=== PATIENT | male | born 1950 | race Caucasian/White ===

== ENCOUNTER 2016-10-05 05:25 | Inpatient (IN) | payer OTHER ==
[2016-10-05] VITALS (7 sets, daily range): BP systolic 102–159; BP diastolic 52–84
[~2016-10-05] VITALS: Ht 185.4 cm; Wt 154.0 kg
--- NOTE | ~2016-10-05 | HC ---
[facility] [place] [address] CONSULTATION Name: JACINTA GALVAN Naren Room #: 307-P [facility] IN ..#: [id number] Admission: 10/05/16 Attend Phys: Erik Christiansen MD Discharge: Date of : 52 Report #: [id number] THIS REPORT FOR: //name// CC: Erik Tellez DATE OF SERVICE: 10/05/2016 General Surgery Consultation HISTORY OF PRESENT ILLNESS: The patient is a very pleasant 66-year-old gentleman with history of upper abdominal pain over the past 48 hours. This was associated with nausea and vomiting times 1. He has continued to be able to pass flatus and bowel movements. He has been tolerating liquids and has been drinking Gatorade and water, although he did have some emesis at least at one point approximately 24 hours ago. He feels that his abdomen is more distended than his baseline. Denies hematemesis, melena or hematochezia. PAST MEDICAL HISTORY: Positive for grand mal seizures on Dilantin chronically. PAST SURGICAL HISTORY: Previous laminectomy, previous appendectomy. FAMILY HISTORY: Coronary artery disease. SOCIAL HISTORY: The patient is a heavy smoker and smokes 2 packs per day and has for at least 20 years. Negative for drug use, social ETOH only. ALLERGIES: He states no known drug allergies. REVIEW OF SYSTEMS: CONSTITUTIONAL: Negative for fevers, chills or unwanted weight loss. OCULAR: No diplopia or visual change. HEENT: No dysphagia or odynophagia. No voice changes. PULMONARY: No productive cough, no shortness of breath. CARDIOVASCULAR: No chest pain or palpitation. GASTROINTESTINAL: Positive for distention, abdominal pain, nausea and vomiting. GENITOURINARY: Negative for dysuria or hematuria. MUSCULOSKELETAL: No joint swelling, positive for chronic low back pain. CUTANEOUS: Negative for skin lesions or rashes. NEUROLOGIC: No focal weakness or numbness. PHYSICAL EXAMINATION: GENERAL: The patient is awake, alert and oriented. He is afebrile. He is in no acute distress. He is normotensive. Head is atraumatic and normocephalic. Cranial nerves are intact and symmetric. No icterus is appreciated. [address] [address] CONSULTATION Name: JACINTA GALVAN Room #: 307-P [facility] IN .R.#: [id number] Admission: 10/05/16 Attend Phys: Erik Christiansen MD Discharge: Date of : 51 Report #: [id number] cavity is clear, pink, moist mucosa noted. NECK: Supple, without jugular venous distention. LUNGS: Clear to auscultation. No respiratory distress. HEART: Regular, without murmur. ABDOMEN: Distended. He is tender to palpation in the epigastrium and right upper quadrant. No rebound or guarding. There is a well-healed appendectomy incision in the right lower quadrant. EXTREMITIES: Without clubbing, cyanosis or edema. SKIN: Shows changes consistent with heavy chronic smoking, no focal lesions, rashes are noted. LABORATORY DATA: Reviewed. The patient has a hemoglobin of 13.5, platelets of 262, white count of 22, lipase of 48. Total bilirubin of 0.7, AST of 16, ALT of 23. Basic metabolic profile essentially unremarkable. Creatinine 1.1. Ultrasound of the abdomen is reviewed and this shows mild sludge, no obvious stones, no obvious common bile duct obstruction, diffuse hepatic steatosis is noted. Gallbladder is distended with diffuse thickening of the baker. There is a small amount of pericholecystic fluid. CT scan of abdomen and pelvis was obtained by the emergency department. This was reviewed and shows gallbladder wall thickening with distention and pericholecystic fluid as well. No obvious biliary ductal obstruction, extensive diverticulosis without any obvious diverticulitis. IMPRESSION: A 66-year-old male patient with a 2-day history of acute cholecystitis. PLAN: The patient is admitted and has been started on IV Zosyn. We will plan for laparoscopic cholecystectomy with intraoperative cholangiogram at the next available opportunity. Consultation very much appreciated. <ELECTRONICALLY SIGNED> By: Yosi Lancaster MD 10/06/16 1832 1207 1423 Yosi Lancaster MD /nt
--- NOTE | ~2016-10-05 | S ---
[facility] [place] [address] SURGICAL PATH RPT PROCEDURE Name: JIM GALVAN Room #: 307-P ADM IN M.R.#: [id number] Admission: 10/05/16 Date of : 52 Discharge: Report #: [id number] Path Case #: [id number] PATHOLOGY REPORT COLLECTION DATE: 10/05/2016 RECEIVED DATE: 10/05/2016 SUBMITTING PHYS: Dr. Yosi Lancaster OTHER PHYS: MD Dr. David Lucas SPECIMEN(S) RECEIVED: A.Gallbladder * * * * * * * * * * * * FINAL DIAGNOSIS: "Gallbladder", cholecystectomy: - Acute necrotizing cholecystitis. - Cholelithiasis. (CLW:kayla; 10/07/2016) COMMENT: Background chronic cholecystitis is also noted. Clinical correlation is recommended. (CLW:kayla; 10/07/2016) PATHOLOGIST: Lois Kang M.D. REPORT ELECTRONICALLY SIGNED BY: Lois Kang M.D. DATE/TIME: 10/07/2016 14:30 * * * * * * * * * * * * GROSS PATHOLOGY: Received in formalin labeled "NareshJim, gallbladder," is a 13.2 x 6.2 x 2.4 cm, previously opened gallbladder with a moderate to large amount of attached adipose tissue and pinktan to red-brown wrinkled serosal surfaces. Opening the gallbladder reveals a red-brown to green thick mucus-like material and green to brown slightly velvety to rough patchy mucosa and an average wall thickness of 0.2 cm. Calculi are present, yellow, bumpy, friable and range in size from 0.2 to 0.8 cm in maximum dimensions. No masses are noted grossly. Butter Grader sections from the body and fundus are submitted along with the proximal margin in cassette A1. (DAWIT; 10/06/2016) CLINICAL HISTORY: Cholecystitis, cholelithiasis [address] [address] SURGICAL PATH RPT PROCEDURE Name: JIM GALVAN Naren Room #: 307-P [facility] IN ..#: [id number] Admission: 10/05/16 Date of : 52 Discharge: Report #: [id number] Path Case #: [id number] INITIAL CPT CODE(S): A; 42181 Professional services performed by [facility] at [address], [place] [address] Technical services performed by [facility] at [address] [place] [address], [facility] [address], [place] [address]. [facility] [address] [place] [address] PHONE: [phone] DIRECTOR: Anoop Esquivel M.D. * * * END OF REPORT * * *
--- NOTE | ~2016-10-05 | O ---
[facility] [place] [address] OPERATIVE REPORT Name: JACINTA GALVAN Room #: 307-P ADM IN M.R.#: [id number] Admission: 10/05/16 Attend Phys: Erik Christiansen MD Discharge: Date of : 51 Report #: [id number] THIS REPORT FOR: //name// CC: Erik Christiansen [facility] [place] DATE OF SERVICE: 10/05/2016 PREOPERATIVE DIAGNOSIS: Cholecystitis. POSTOPERATIVE DIAGNOSIS: Gangrenous cholecystitis, cholelithiasis. SURGEON: Yosi Lancaster MD MANAGER TRUST: Jeremy Iyer MD PROCEDURE: Laparoscopic cholecystectomy. ANESTHESIA: General endotracheal anesthesia and local anesthetic. ESTIMATED BLOOD LOSS: 100 mL. SPECIMENS TO PATHOLOGY: Gallbladder and contents. COMPLICATIONS: None. FINDINGS: Severe acute cholecystitis with gangrenous changes to the gallbladder, 130 mL of purulent bile aspirated from the gallbladder and passed off for culture and sensitivity. The patient noted to have a BMI of 45, which added to the difficulty level of the case. He also had significant hepatic steatosis, which added to oozing of the liver bed significantly and gave some difficulty maintaining hemostasis. INDICATION FOR PROCEDURE: The patient is a 66-year-old male patient with approximately 2-day history of upper abdominal pain that had worsened to a degree that he sought evaluation in the Emergency Department. He has extensive tobacco abuse history, having smoked approximately 2 packs per day for many years. He had developed nausea and vomiting with distended abdomen. In the Emergency Department, he underwent radiographic evaluation with CT scan and ultrasound that showed a distended, diffusely thickened gallbladder with small amount of pericholecystic fluid. Ultrasound showed similar findings with gallbladder sludge also noted. General Surgery was consulted after the patient was admitted and started on IV antibiotic therapy. Detailed discussion of the risks and benefits of surgical intervention was held with the patient. Risks including bleeding, pain, infection, abscess formation, damage to surrounding structures such as liver, common bile duct, small bowel, stomach, colon and other potentially unforeseen complications were all discussed. All questions [address] [address] OPERATIVE REPORT Name: JACINTA GALVAN Room #: 307-P [facility] IN .R.#: [id number] Admission: 10/05/16 Attend Phys: Erik Christiansen MD Discharge: Date of : 51 Report #: [id number] were answered to the patient's satisfaction. Written informed consent was obtained. DESCRIPTION OF PROCEDURE: The patient was brought to the operating room and placed in a supine position. Timeout was taken to verify the patient's identity and to plan the procedure. SCDs were in place on the lower extremities bilaterally. Preoperative antibiotics were administered. Anesthesia was induced. The patient was intubated. The abdomen was sterilely prepped and draped in standard fashion. Supraumbilical incision was made with a 10 blade after local anesthetic had been infiltrated. Dissection was carried down to the level of fascia, which was grasped and retracted anterior. Incision was then made in the fascia and digital palpation was utilized to enter the peritoneal cavity. A 12 mm port was then placed and balloon inflated. Pneumoperitoneum was then created and inspection of the viscera with a laparoscope demonstrated that no injury had occurred upon entry. A 5 mm subxiphoid port was placed under direct vision as well as a midclavicular right subcostal and a right lateral subcostal 5 mm port placed under direct vision after local anesthetic had been infiltrated. The patient was placed in steep reverse Trendelenburg position with the right side up to improve visualization. Initially, the omentum was scarred up around the gallbladder as well as was the duodenum. These were taken down with blunt dissection and Sonicision energy device with extreme caution. The gallbladder was ultimately able to be visualized and this was so distended and thickened that it was unable to be grasped initially. Therefore, a Toeple needle and syringe apparatus were utilized to aspirate 130 mL of purulent bile from the gallbladder. This was noted to be malodorous and with the appearance of acute infection, this was passed off for specimen analysis. The gallbladder was then able to be grasped and retracted anterolaterally. The infundibulum of the gallbladder was then carefully dissected out and the cystic duct was noted to be quite short right up against the common bile duct. Therefore, cholangiogram was not performed. The cystic artery was also isolated and critical view of safety was obtained. Cystic artery was taken down with 2 clips and transected between the clips. Cystic duct was clipped 1 time near the gallbladder and 3 times on the downside or proximal side. This was then transected using Sonicision energy device. The gallbladder was then extracted from the gallbladder fossa using electrocautery and Sonicision energy device. This was somewhat difficult as the liver bed was steatotic and tender to ooze significantly. The plane between the gallbladder and the liver was also not well defined, possibly associated with the significant inflammation. The gallbladder itself was noted to be necrotic with gangrenous changes turning villafuerte and black in various locations consistent with a severe acute infection. Once the gallbladder had been successfully excised from the fossa, this was passed into an EndoCatch bag and removed from the umbilical port site. This was difficult as the gallbladder did not easily fit through the small incision and the incision had to be enlarged slightly. Gallbladder was examined on the back table and was noted to have necrotic changes with cholelithiasis. Reinspection of the [facility] [address] [place] [address] OPERATIVE REPORT Name: JACINTA GALVAN Room #: 307-P ADM IN ..#: [id number] Admission: 10/05/16 Attend Phys: Erik Christiansen MD Discharge: Date of : 51 Report #: [id number] infrahepatic space was performed. There were several areas of oozing which were controlled with electrocautery on high setting. Copious warm sterile saline was washed into the infrahepatic space and suctioned clear. Hemostasis was carefully verified. Surgicel was placed into the liver bed as well as FloSeal to aid with hemostasis. The 12 mm port was removed and the fascia was closed at that level using #1 [id number] PDS suture. Reinspection of the infrahepatic space showed that hemostasis had been maintained. A 19-British Cristhian drain was brought into the field and lying in place underneath the liver bed to collect any further abscess that might form versus hematoma. The drain was brought out through the right lateral port site and secured in place using interrupted 2-0 nylon sutures at the level of the skin. Reinspection of the gallbladder fossa showed that hemostasis was still maintained and at this point the case was ended. Pneumoperitoneum was relieved. A 5 mm ports were discontinued. Further local anesthetic was infiltrated in each of the port sites. The skin was closed externally using skin yareli. Sterile dressings were applied superficially. The Cristhian drain was placed to bulb suction and was noted to hold suction well. At this point, the case was ended, all instrumentation had been extracted and accounted for. All counts were correct per nurse report. The patient was extubated and taken to the postoperative care unit in stable condition. <ELECTRONICALLY SIGNED> By: Yosi Lancaster MD 10/14/16 1624 1349 1442 Yosi Lancaster MD /nt
--- NOTE | ~2016-10-05 | EKG ---
[address] [address] ELECTROCARDIOGRAM REPORT Name: JACINTA GALVAN Room #: 307-P ADM IN M.R.#: [id number] Admission: 10/05/16 Attend Phys: Erik Christiansen MD Discharge: Date of : 51 Report #: [id number] THIS REPORT FOR: //name// [facility] ED Test Date: 2016-10-05 Test Time: 06:17:56 Pat Name: JACINTA GALVAN Department: Room: [facility] Gender: M Front Attendant: SANDRA : 1950 Requested By: Yaa Kang Order Number: [id number] MD: Luis Manuel Tarango Measurements Intervals [place] Rate: 91 P: 49 CT: 167 QRS: 13 QRSD: 94 T: 27 QT: 329 QTc: 405 Interpretive Statements Sinus rhythm Baseline wander in lead(s) V2,V4 Compared to ECG 01/22/2000 07:45:38 No significant changes Electronically Signed On 10-05-2016 16:45:57 CDT by Luis Manuel Tarango [email or web address] <ELECTRONICALLY SIGNED> By: Luis Manuel Tarango MD 10/05/16 1645 6 6 Luis Manuel Tarango MD /ANA
--- NOTE | ~2016-10-05 | HC ---
[facility] [place] [address] CONSULTATION Name: JACINTA GALVAN Room #: 307-P [facility] IN .R.#: [id number] Admission: 10/05/16 Attend Phys: Erik Christiansen MD Discharge: Date of : 51 Report #: [id number] THIS REPORT FOR: //name// CC: Erik Barreratabitha DATE OF SERVICE: 10/06/2016 REASON FOR CONSULTATION: Acute kidney injury. HISTORY OF PRESENT ILLNESS: A 66-year-old gentleman with hypertension and seizure disorder presents with severe abdominal pain, found to have gangrenous gallbladder, had surgery yesterday, had purulent biliary fluid as well and has become rather overnight with hypotension, decreased urine output, elevated creatinine in LFTs. PAST MEDICAL HISTORY: Longstanding hypertension in reasonable control, he is almost on hydrochlorothiazide; longstanding seizure disorder, controlled with Keppra; history of hyperlipidemia. He has also had previous laminectomy and appendectomy. SOCIAL HISTORY: He is a very heavy longstanding smoker. He is an RN, recently retired. FAMILY HISTORY: Father with coronary artery disease with no renal disease in the family. ALLERGIES: No known drug allergies. HOME MEDICATIONS: Include Dilantin 300 mg a.m. and 200 mg p.m., losartan 100/12.5, Lipitor 40 mg daily, aspirin and finasteride. REVIEW OF SYSTEMS: GENERAL: He is not feeling well postoperatively. EYES: His vision is okay. ENT: Hearing okay, swallows okay. Denies mouth ulcers. ENDOCRINE: No diabetes or thyroid disease. RESPIRATORY: Denies shortness of breath, pleuritic pain, no cough, no hemoptysis. CARDIAC: Denies chest pain, palpitations, shortness of breath. GASTROINTESTINAL: Severe abdominal pain along with this episode. GENITOURINARY: Has had reasonably good urinary stream. No hematuria or stone disease, no history of dysuria, UTIs. NEUROLOGIC: Denies seizure, syncope, stroke or neuropathy symptoms. PSYCHIATRIC: Denies depression or anxiety. [facility] [address] [place] [address] CONSULTATION Name: JACINTA GALVAN Naren Room #: 307-P [facility] IN ..#: [id number] Admission: 10/05/16 Attend Phys: Erik Christiansen MD Discharge: Date of : 51 Report #: [id number] PHYSICAL EXAMINATION: VITAL SIGNS: This is an overweight gentleman looking his stated age. SKIN: Unremarkable. SKELETAL: Well developed, well nourished. HEENT: Extraocular movements are full. No scleral icterus. Hearing and vision intact. Mucous membranes dry. NECK: Veins are flat. CHEST: Clear to auscultation. HEART: Regular. ABDOMEN: Distended, slightly tender, but bowel sounds are present. EXTREMITIES: Show no peripheral edema. Pulses intact. NEUROLOGIC: Grossly intact. LABORATORY DATA: Urinalysis was dilute preoperatively. Hemoglobin 12, white count of 19.8, only 1 band. Sodium 138, potassium 4.6, chloride 100, bicarbonate 29, BUN 25, creatinine 2.8. AST 721. Phosphorus 5.8, ALT 644. ASSESSMENT AND PLAN: 1. Elevated creatinine. He appears to have acute injury. Hopefully, this is simply prerenal. Blood pressure is lower than I would expect. I will give him a liter of fluid, check urinary electrolytes. We will get a Jeffries put in, be aggressive with fluid management, increase his saline. Hopefully we can get him reperfused, get his blood pressure up. Part of the problem is he has chronic hypertension, he has been on losartan. He is obviously having trouble with autoregulation in getting these kidneys perfused adequately. He certainly is at risk for acute tubular necrosis and we will strongly watch closely for that as well. We will monitor closely. He may actually need to be transferred to a more intensive setting. 2. Hypertension. 3. Seizure disorder. 4. Status post cholecystectomy with gangrenous gallbladder, purulent biliary drainage. <ELECTRONICALLY SIGNED> By: Sky Esposito MD 10/14/16 1121 1130 1430 Sky Esposito MD /nt
--- NOTE | ~2016-10-05 | H ---
[facility] [place] [address] HISTORY AND PHYSICAL Name: JACINTA GALVAN Naren Room #: 307-P ADM IN M.R.#: [id number] Admission: 10/05/16 Attend Phys: Erik Christiansen MD Discharge: Date of : 52 Report #: [id number] THIS REPORT FOR: //name// CC: Erik Hernandez [facility] DATE OF SERVICE: 10/05/2016 REASON FOR ADMISSION: Abdominal pain with acute cholecystitis. HISTORY OF PRESENT ILLNESS: The patient is a pleasant 66-year-old gentleman. He has been having significant abdominal discomfort primarily in his right upper quadrant, but also radiating to the rest of his abdomen starting approximately 2 days prior. This has been accompanied by significant nausea with him unable to keep any significant amount of food down. He has also overall felt substantially ill and febrile. He has noted abdominal bloating and hence presented with all these symptoms to the Emergency Room. Here, he is felt to have an acute abdomen and CT in the Emergency Room was concerning for acute cholecystitis. The surgical team has already been informed about this patient and he is planned for definite operative repair later this morning. When seen by me today, he continues to have abdominal pain and nausea, but has no other significant complaints. He is coherent and able to appropriately answer my questions. He denies headaches, skin rashes, shortness of breath, chest pain or other new complaints at this time. PAST MEDICAL HISTORY: Includes: 1. Epilepsy. 2. Hypertension. 3. Hyperlipidemia. PAST SURGICAL HISTORY: Includes: 1. Appendectomy. 2. Laminectomy in the 1990s. SOCIAL HISTORY: Active smoker, 2 packs a day for 40 years. No alcohol use reported. 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 FAMILY HISTORY: Father had coronary artery disease. ALLERGIES: No known drug allergies. HOME MEDICATIONS: Include, 1. Dilantin 300 in the morning, 200 at night. 2. Losartan 100/12.5. 3. Lipitor. [address] [address] HISTORY AND PHYSICAL Name: MANDYJACINTA Room #: 307-P [facility] IN ..#: [id number] Admission: 10/05/16 Attend Phys: Erik Christiansen MD Discharge: Date of : 52 Report #: [id number] 4. Aspirin. 5. Finasteride. REVIEW OF SYSTEMS: Twelve-point review of systems performed, negative except as mentioned in the history of present illness. PHYSICAL EXAMINATION: VITAL SIGNS: The patient is afebrile, pulse of 92, respiratory rate of 20, O2 sat 97 on room air, blood pressure is 159/84. GENERAL: Awake, alert, somewhat uncomfortable. HEENT: Unremarkable. NECK: No JVD or thyromegaly. CARDIOVASCULAR: S1 and S2 present, regular. RESPIRATORY: Air entry present bilaterally. ABDOMEN: Bloated, somewhat tense, tender to palpation all over with guarding. EXTREMITIES: Without edema. NEUROLOGIC: Awake, alert. No obvious focal findings. SKIN: Unremarkable. No rash or lesions. LABS AND INVESTIGATIONS: Reviewed, notable for leukocytosis of 22,000. Hemoglobin within normal range. Platelets within normal range. Chemistry with normal renal function. No other obvious severe concerning abnormalities. LFTs within normal range. Imaging with abdominal and pelvis CT and abdominal ultrasound demonstrates distended gallbladder with wall thickening and moderate pericholecystic fluid consistent with cholecystitis. Ultrasound also showing acute cholecystitis. ASSESSMENT AND PLAN: This is a 66-year-old gentleman presenting with acute cholecystitis. 1. Acute cholecystitis. The patient is planned for definitive surgical intervention later this morning. In the meantime, we will temporize him with Zosyn and start pain and nausea control medications. 2. Epilepsy. Home meds to be continued postop. 3. Hypertension. Home meds to be continued postop. 4. Hyperlipidemia. Home meds to be continued postop. 5. Deep vein thrombosis prophylaxis, mechanical alone at the present with plans for surgery this morning. <ELECTRONICALLY SIGNED> By: Erik Christiansen MD 10/05/16 1517 1021 1104 Erik Christiansen MD /nt
[2016-10-05] MEDS ORDERED: ADULT LOW DOSE81 MG PO (05:42)
[2016-10-05] MEDS ORDERED: DILANTIN100 MG PO ×2 (05:43)
[2016-10-05] MEDS ORDERED: COZAAR 50 MG TA50 M2 PO (05:51)
[2016-10-05] MEDS ORDERED: HYDROCHLOROTH12.5 M1 PO (05:51)
[2016-10-05] MEDS ORDERED: PROSCAR 5MG TABL5 MG PO (05:52)
[2016-10-05] MEDS ORDERED: ADULTS 50 PLUS1 EACH PO (05:53)
[2016-10-05] MEDS ORDERED: FLONASE 0.05%50 MCG NASAL (05:54)
[2016-10-05 06:20] LABS: HEMATOCRIT 40.1 % (42.0-52.0); HEMOGLOBIN 13.5 gm/dL (14.0-18.0); MCHC 33.5 g/dL (28.0-37.0); MCV 92.4 fL (80.0-100.0); PLATELET COUNT 262 thou/uL (150-400); RBC 4.34 mil/uL (4.50-6.00); RDW 13.7 % (10.5-14.5); WBC 22.1 thou/uL (4.0-11.0)
[2016-10-05 06:23] LABS: MANUAL DIFF YES
[2016-10-05 06:41] LABS: ANION GAP 8 mmol/L (7-16); BUN 15 mg/dL (7-18); CHLORIDE 100 mmol/L (98-107); CO2 28 mmol/L (21-32); CREATININE 1.1 mg/dL (0.7-1.3); GLUCOSE 141 mg/dL (74-106); POTASSIUM 3.8 mmol/L (3.5-5.1); SODIUM 136 mmol/L (136-145)
[2016-10-05 06:50] LABS: ALBUMIN 3.4 g/dL (3.4-5.0); ALKALINE PHOSPHATASE 65 U/L (46-116); DIRECT BILIRUBIN 0.3 mg/dL (<0.1-0.3); SGOT 16 U/L (15-37); SGPT 23 U/L (30-65); TOTAL BILIRUBIN 0.7 mg/dL (<0.1-1.0); TOTAL PROTEIN 7.6 g/dL (6.4-8.2); TROPONIN-I < 0.04 ng/mL (<0.04-0.07)
[2016-10-05 07:11] LABS: ABSOLUTE NEUTROPHILS 18.8 thou/uL (1.4-8.2); ANISOCYTOSIS SLIGHT; TOTAL CELL COUNT 100
[2016-10-05 07:12] LABS: POLYCHROMASIA OCCASIONAL
[2016-10-05 10:41] LABS: URINE BILIRUBIN NEGATIVE (Negative); URINE BLOOD TRACE (Negative); URINE COLOR YELLOW; URINE GLUCOSE-RANDOM* NEGATIVE (Negative); URINE KETONES NEGATIVE (Negative); URINE LEUKOCYTES-REFLEX NEGATIVE (Negative); URINE PROTEIN (DIPSTICK) NEGATIVE (Negative); URINE SPECIFIC GRAVITY <= 1.005 (1.003-1.035); URINE UROBILINOGEN 0.2 E.U./dl (0.2-1.0)
[2016-10-06 04:05] VITALS: BP 97/51
[2016-10-06 04:26] LABS: HEMATOCRIT 36.3 % (42.0-52.0); MCH 31.5 pg (26.0-34.0); MCHC 33.2 g/dL (28.0-37.0); PLATELET COUNT 248 thou/uL (150-400); RBC 3.82 mil/uL (4.50-6.00); RDW 13.9 % (10.5-14.5); WBC 19.8 thou/uL (4.0-11.0)
[2016-10-06 04:28] LABS: MANUAL DIFF YES
[2016-10-06 04:45] LABS: ALBUMIN 2.8 g/dL (3.4-5.0); CALCIUM 8.1 mg/dL (8.5-10.1); CREATININE 2.8 mg/dL (0.7-1.3); PHOSPHORUS 5.8 mg/dL (2.5-4.9); POTASSIUM 4.6 mmol/L (3.5-5.1); TOTAL BILIRUBIN 0.5 mg/dL (<0.1-1.0)
[2016-10-06 07:58] LABS: ABSOLUTE NEUTROPHILS 17.6 thou/uL (1.4-8.2); TOTAL CELL COUNT 100
[2016-10-06 07:59] LABS: ANISOCYTOSIS SLIGHT
[2016-10-06 08:35] VITALS: BP 93/52
[2016-10-06 11:50] VITALS: BP 118/63
[2016-10-06 12:57] LABS: URINE CREATININE-RANDOM* 168.1 mg/dL
[2016-10-06 16:43] VITALS: BP 111/46
[2016-10-06 16:59] LABS: HEMATOCRIT 34.4 % (42.0-52.0); HEMOGLOBIN 11.4 gm/dL (14.0-18.0); MCH 31.4 pg (26.0-34.0); MCHC 33.1 g/dL (28.0-37.0); MCV 94.7 fL (80.0-100.0); RBC 3.63 mil/uL (4.50-6.00); WBC 17.4 thou/uL (4.0-11.0)
[2016-10-06 17:14] LABS: ALBUMIN 2.5 g/dL (3.4-5.0); CALCIUM 7.3 mg/dL (8.5-10.1); CREATININE 3.7 mg/dL (0.7-1.3); POTASSIUM 4.7 mmol/L (3.5-5.1); TOTAL BILIRUBIN 0.6 mg/dL (<0.1-1.0); TOTAL PROTEIN 6.6 g/dL (6.4-8.2)
[2016-10-06 20:05] VITALS: BP 114/56
[2016-10-07 00:30] VITALS: BP 129/51
[2016-10-07 03:45] VITALS: BP 94/47
[2016-10-07 06:52] LABS: HEMATOCRIT 31.7 % (42.0-52.0); HEMOGLOBIN 10.3 gm/dL (14.0-18.0); MCH 30.9 pg (26.0-34.0); MCHC 32.4 g/dL (28.0-37.0); MCV 95.4 fL (80.0-100.0); RBC 3.33 mil/uL (4.50-6.00); RDW 13.8 % (10.5-14.5); WBC 20.3 thou/uL (4.0-11.0)
[2016-10-07 07:12] LABS: MAGNESIUM 1.6 mg/dL (1.8-2.4); PHOSPHORUS 5.3 mg/dL (2.5-4.9)
[2016-10-07 07:18] LABS: ALBUMIN 2.2 g/dL (3.4-5.0); CALCIUM 6.7 mg/dL (8.5-10.1); POTASSIUM 4.8 mmol/L (3.5-5.1); TOTAL BILIRUBIN 0.6 mg/dL (<0.1-1.0); TOTAL PROTEIN 5.4 g/dL (6.4-8.2)
[2016-10-07 08:41] VITALS: BP 104/60
[2016-10-07 16:43] VITALS: BP 108/65
[2016-10-07 19:21] VITALS: BP 109/65
[2016-10-08 04:02] LABS: HEMATOCRIT 29.8 % (42.0-52.0); HEMOGLOBIN 9.9 gm/dL (14.0-18.0); MCH 31.5 pg (26.0-34.0); MCHC 33.2 g/dL (28.0-37.0); PLATELET COUNT 248 thou/uL (150-400); RBC 3.14 mil/uL (4.50-6.00); RDW 13.7 % (10.5-14.5); WBC 15.4 thou/uL (4.0-11.0)
[2016-10-08 04:11] LABS: MANUAL DIFF YES
[2016-10-08 04:15] LABS: CALCIUM 6.9 mg/dL (8.5-10.1); MAGNESIUM 2.3 mg/dL (1.8-2.4); PHOSPHORUS 5.3 mg/dL (2.5-4.9); POTASSIUM 4.7 mmol/L (3.5-5.1); TOTAL BILIRUBIN 0.6 mg/dL (<0.1-1.0); TOTAL PROTEIN 6.1 g/dL (6.4-8.2)
[2016-10-08 04:16] LABS: CREATININE 6.3 mg/dL (0.7-1.3)
[2016-10-08 04:33] VITALS: BP 106/51
[2016-10-08 05:41] LABS: ABSOLUTE NEUTROPHILS 13.4 thou/uL (1.4-8.2); TOTAL CELL COUNT 100
[2016-10-08 07:30] VITALS: BP 115/61
[2016-10-08 16:58] VITALS: BP 132/62
[2016-10-08 19:51] VITALS: BP 118/50
[2016-10-09 03:45] VITALS: BP 109/49
[2016-10-09 05:47] LABS: HEMATOCRIT 31.1 % (42.0-52.0); HEMOGLOBIN 10.3 gm/dL (14.0-18.0); MCH 31.1 pg (26.0-34.0); MCHC 33.1 g/dL (28.0-37.0); PLATELET COUNT 304 thou/uL (150-400); RBC 3.31 mil/uL (4.50-6.00); RDW 13.9 % (10.5-14.5); WBC 14.6 thou/uL (4.0-11.0)
[2016-10-09 05:52] LABS: MANUAL DIFF YES
[2016-10-09 06:05] LABS: ALBUMIN 1.9 g/dL (3.4-5.0); CALCIUM 7.2 mg/dL (8.5-10.1); CREATININE 7.5 mg/dL (0.7-1.3); POTASSIUM 4.2 mmol/L (3.5-5.1)
[2016-10-09 07:31] LABS: MAGNESIUM 2.2 mg/dL (1.8-2.4); PHOSPHORUS 6.2 mg/dL (2.5-4.9)
[2016-10-09 08:00] VITALS: BP 119/57
[2016-10-09 08:32] LABS: ABSOLUTE NEUTROPHILS 13.3 thou/uL (1.4-8.2); PLATELET ESTIMATE NORMAL; TOTAL CELL COUNT 100
[2016-10-09 16:00] VITALS: BP 125/62
[2016-10-09 19:40] VITALS: BP 121/55
[2016-10-10 04:17] VITALS: BP 100/49
[2016-10-10 06:24] LABS: HEMATOCRIT 31.8 % (42.0-52.0); HEMOGLOBIN 10.5 gm/dL (14.0-18.0); MCH 30.9 pg (26.0-34.0); MCV 93.5 fL (80.0-100.0); RBC 3.4 mil/uL (4.50-6.00); RDW 13.9 % (10.5-14.5); WBC 14.1 thou/uL (4.0-11.0)
[2016-10-10 06:50] LABS: CALCIUM 7.7 mg/dL (8.5-10.1); CREATININE 8.3 mg/dL (0.7-1.3); POTASSIUM 4.3 mmol/L (3.5-5.1)
[2016-10-10 07:50] VITALS: BP 131/67
[2016-10-10 15:54] VITALS: BP 140/67
[2016-10-10 19:44] VITALS: BP 151/53
[2016-10-11 02:49] VITALS: BP 114/54
[2016-10-11 05:38] LABS: HEMATOCRIT 31.8 % (42.0-52.0); HEMOGLOBIN 10.5 gm/dL (14.0-18.0); MANUAL DIFF YES; MCH 30.8 pg (26.0-34.0); MCV 93.4 fL (80.0-100.0); PLATELET COUNT 430 thou/uL (150-400); RDW 13.7 % (10.5-14.5); WBC 15.9 thou/uL (4.0-11.0)
[2016-10-11 06:02] LABS: ALBUMIN 1.9 g/dL (3.4-5.0); CALCIUM 8.2 mg/dL (8.5-10.1); CREATININE 8.7 mg/dL (0.7-1.3); PHOSPHORUS 7.9 mg/dL (2.5-4.9); POTASSIUM 4.6 mmol/L (3.5-5.1)
[2016-10-11 08:05] VITALS: BP 134/60
[2016-10-11 09:09] LABS: ABSOLUTE NEUTROPHILS 12.2 thou/uL (1.4-8.2); ANISOCYTOSIS SLIGHT; HYPOCHROMASIA 1+; METAMYELOCYTES 1 %; POLYCHROMASIA OCCASIONAL; TOTAL CELL COUNT 100
[2016-10-11 16:04] VITALS: BP 146/86
[2016-10-11 19:18] VITALS: BP 146/63
[2016-10-12 04:08] VITALS: BP 158/66
[2016-10-12 06:16] LABS: HEMATOCRIT 29.9 % (42.0-52.0); MCH 30.8 pg (26.0-34.0); MCHC 33.3 g/dL (28.0-37.0); MCV 92.7 fL (80.0-100.0); PLATELET COUNT 451 thou/uL (150-400); RBC 3.23 mil/uL (4.50-6.00); RDW 13.5 % (10.5-14.5); WBC 13.9 thou/uL (4.0-11.0)
[2016-10-12 06:18] LABS: MANUAL DIFF YES
[2016-10-12 06:28] LABS: ALBUMIN 1.7 g/dL (3.4-5.0); CALCIUM 8.2 mg/dL (8.5-10.1); CREATININE 8.4 mg/dL (0.7-1.3); PHOSPHORUS 7.9 mg/dL (2.5-4.9); POTASSIUM 4.6 mmol/L (3.5-5.1)
[2016-10-12 08:10] LABS: ANISOCYTOSIS SLIGHT; METAMYELOCYTES 1 %; POLYCHROMASIA OCCASIONAL; TOTAL CELL COUNT 100
[2016-10-12 08:56] VITALS: BP 141/59
[2016-10-12 15:25] VITALS: BP 144/52
[2016-10-12 19:09] VITALS: BP 159/62
[2016-10-13 03:46] VITALS: BP 156/65
[2016-10-13 04:59] LABS: HEMATOCRIT 32.6 % (42.0-52.0); HEMOGLOBIN 10.6 gm/dL (14.0-18.0); MCH 30.4 pg (26.0-34.0); MCHC 32.6 g/dL (28.0-37.0); MCV 93.1 fL (80.0-100.0); PLATELET COUNT 487 thou/uL (150-400); RDW 13.7 % (10.5-14.5); WBC 14.1 thou/uL (4.0-11.0)
[2016-10-13 05:03] LABS: MANUAL DIFF YES
[2016-10-13 05:18] LABS: ALBUMIN 1.8 g/dL (3.4-5.0); CALCIUM 8.7 mg/dL (8.5-10.1); CREATININE 8.2 mg/dL (0.7-1.3); MAGNESIUM 2.3 mg/dL (1.8-2.4); PHOSPHORUS 7.8 mg/dL (2.5-4.9); POTASSIUM 4.7 mmol/L (3.5-5.1); TOTAL BILIRUBIN 0.5 mg/dL (<0.1-1.0); TOTAL PROTEIN 6.9 g/dL (6.4-8.2)
[2016-10-13 08:00] VITALS: BP 157/70
[2016-10-13 08:51] LABS: PLATELET ESTIMATE INCREASED; TOTAL CELL COUNT 100
[2016-10-13 11:00] VITALS: BP 152/65
[2016-10-13 19:55] VITALS: BP 149/64
[2016-10-14 04:25] VITALS: BP 155/68
[2016-10-14 04:45] VITALS: BP 151/71
[2016-10-14 05:56] LABS: ALBUMIN 1.9 g/dL (3.4-5.0); CALCIUM 8.9 mg/dL (8.5-10.1); CREATININE 7.9 mg/dL (0.7-1.3); PHOSPHORUS 7.7 mg/dL (2.5-4.9); POTASSIUM 4.9 mmol/L (3.5-5.1)
[2016-10-14 07:44] VITALS: BP 155/66
[2016-10-14 16:00] VITALS: BP 152/70
[2016-10-14 19:27] VITALS: BP 160/69
[2016-10-15 04:18] LABS: CALCIUM 8.5 mg/dL (8.5-10.1); CREATININE 7.5 mg/dL (0.7-1.3); PHOSPHORUS 7.6 mg/dL (2.5-4.9); POTASSIUM 4.8 mmol/L (3.5-5.1)
[2016-10-15 05:23] VITALS: BP 150/67
[2016-10-15 08:58] VITALS: BP 160/68
[2016-10-15 15:55] VITALS: BP 158/71
[2016-10-15 19:33] VITALS: BP 171/60
[2016-10-16 03:36] VITALS: BP 156/66
[2016-10-16 06:33] LABS: ALBUMIN 2.1 g/dL (3.4-5.0); CALCIUM 9.3 mg/dL (8.5-10.1); CREATININE 6.9 mg/dL (0.7-1.3); PHOSPHORUS 7.7 mg/dL (2.5-4.9); POTASSIUM 4.5 mmol/L (3.5-5.1)
[2016-10-16 08:00] VITALS: BP 156/66
[2016-10-16 16:00] VITALS: BP 146/69
[2016-10-16 20:15] VITALS: BP 155/64
[2016-10-17 05:00] VITALS: BP 157/60
[2016-10-17 05:59] LABS: HEMATOCRIT 30.3 % (42.0-52.0); HEMOGLOBIN 10.4 gm/dL (14.0-18.0); MCH 31.4 pg (26.0-34.0); MCHC 34.1 g/dL (28.0-37.0); MCV 91.9 fL (80.0-100.0); PLATELET COUNT 518 thou/uL (150-400); RDW 13.3 % (10.5-14.5); WBC 14.6 thou/uL (4.0-11.0)
[2016-10-17 06:07] LABS: MANUAL DIFF YES
[2016-10-17 06:16] LABS: CREATININE 6.1 mg/dL (0.7-1.3); MAGNESIUM 1.9 mg/dL (1.8-2.4); POTASSIUM 4.2 mmol/L (3.5-5.1)
[2016-10-17 07:22] VITALS: BP 152/60
[2016-10-17 08:16] LABS: ABSOLUTE NEUTROPHILS 11.8 thou/uL (1.4-8.2); METAMYELOCYTES 3 %; TOTAL CELL COUNT 100
[2016-10-17 08:17] LABS: ANISOCYTOSIS 1+; POLYCHROMASIA OCCASIONAL
[2016-10-17 15:40] VITALS: BP 158/65
[2016-10-17 19:33] VITALS: BP 159/65
[2016-10-18 03:09] LABS: ALBUMIN 2.3 g/dL (3.4-5.0); CALCIUM 9.1 mg/dL (8.5-10.1); CREATININE 5.7 mg/dL (0.7-1.3); PHOSPHORUS 7.3 mg/dL (2.5-4.9); POTASSIUM 4.3 mmol/L (3.5-5.1)
[2016-10-18 03:56] VITALS: BP 172/81
[2016-10-18 08:00] VITALS: BP 155/74
[2016-10-18 16:00] VITALS: BP 154/59
[2016-10-18 19:40] VITALS: BP 162/65
[2016-10-19 04:21] VITALS: BP 142/61
[2016-10-19 06:24] LABS: ALBUMIN 2.3 g/dL (3.4-5.0); CALCIUM 9.1 mg/dL (8.5-10.1); PHOSPHORUS 6.5 mg/dL (2.5-4.9); POTASSIUM 4.4 mmol/L (3.5-5.1)
[2016-10-19 16:46] VITALS: BP 152/69
[2016-10-19 20:10] VITALS: BP 157/68
[2016-10-20 04:05] VITALS: BP 155/66
[2016-10-20 05:23] LABS: ALBUMIN 2.4 g/dL (3.4-5.0); CALCIUM 8.9 mg/dL (8.5-10.1); CREATININE 4.5 mg/dL (0.7-1.3); PHOSPHORUS 6.1 mg/dL (2.5-4.9); POTASSIUM 4.7 mmol/L (3.5-5.1)
[2016-10-20 07:56] VITALS: BP 161/70
[2016-10-20] MEDS ORDERED: COZAAR 50 MG TA50 M2 PO (09:07)
[2016-10-20 11:16] VITALS: BP 161/70
[2016-10-20 13:15] VITALS: BP 161/70
[2016-10-20 15:52] VITALS: BP 147/62
[2016-10-20 16:45] VITALS: BP 161/70
[2016-10-20] MEDS ORDERED: SSD CREAM 1% 5050 GM TOP (16:49)
== END 2016-10-20 18:15 | disposition home or self-care (01) | DRG 853 ==
LOC: ER 05:25 → EROBS 08:08 → 3N 08:08 → ENTRNSPT 10-20 17:53 → 3N 10-20 18:15
PROVIDERS: Emergency Medicine; Hospitalist; Internal Medicine; Internal Medicine Endocrinology, Diabetes & Metabolism; Internal Medicine Nephrology; Otolaryngology
PROC: 0FT44ZZ Resection of Gallbladder, Percutaneous Endoscopic Approach (ICD-10-PCS; principal; 2016-10-05)
DX: A41.9 Sepsis, unspecified organism (principal); N17.0 Acute kidney failure with tubular necrosis; E43 Unspecified severe protein-calorie malnutrition; K80.00 Calculus of gallbladder with acute cholecystitis without obstruction; F17.210 Nicotine dependence, cigarettes, uncomplicated; G40.909 Epilepsy, unspecified, not intractable, without status epilepticus; E78.5 Hyperlipidemia, unspecified; I10 Essential (primary) hypertension; R74.0 Nonspecific elevation of levels of transaminase and lactic acid dehydrogenase [LDH]; Z82.49 Family history of ischemic heart disease and other diseases of the circulatory system
CPT/HCPCS: 10094; 50010; 50101; 50249; 50411; 50555; 50886; 50900; 50944; 50962; 51412; 51489; 51751; 51975; 52265; 52266; 54022; 54118; 55245; 55317; 56462; 56524; 56525; 56526; 56639; 56970; 62110; 62900; 70005

== ENCOUNTER → 2019-11-09 | Outpatient (CLI) | payer OTHER ==
[~2019-11-09] MED LIST: ADULT LOW DOSE81 MG PO; ADULTS 50 PLUS1 EACH PO; COZAAR 50 MG TA50 M2 PO; DILANTIN100 MG PO; FLONASE 0.05%50 MCG NASAL; HYDROCHLOROTH12.5 M1 PO; PROSCAR 5MG TABL5 MG PO; SSD CREAM 1% 5050 GM TOP
== END ==
LOC: SJCVC 15:13
PROVIDERS: ATTEND Internal Medicine Cardiovascular Disease
DX: I25.10 Atherosclerotic heart disease of native coronary artery without angina pectoris (principal); I10 Essential (primary) hypertension; E78.00 Pure hypercholesterolemia, unspecified; E78.1 Pure hyperglyceridemia; Z79.899 Other long term (current) drug therapy; Z87.891 Personal history of nicotine dependence

== ENCOUNTER → 2019-11-17 | Outpatient (CLI) | payer OTHER | LOC: CAT 12:31 | PROVIDERS: ATTEND Internal Medicine Cardiovascular Disease | DX: Z13.6 Encounter for screening for cardiovascular disorders (principal); I25.10 Atherosclerotic heart disease of native coronary artery without angina pectoris; E78.00 Pure hypercholesterolemia, unspecified ==

== ENCOUNTER 2020-05-15 13:48 | Inpatient (IN) | payer OTHER ==
[~2020-05-15] VITALS: Ht 185.4 cm; Wt 181.9 kg
[2020-05-15 13:30] VITALS: BP 189/68
[~2020-05-15 13:48] MED LIST changes: -ATENOLOL 25 MG25 M1 PO; -CARDURA2 MG PO; -DEMADEX20 MG PO; -EDARBYCLOR 40-1 EAC1 PO; -IBUPROFEN 600600 M1 PO; -LIPITOR 20 MG T20 M1 PO; -PROBIOTIC1 EAC7 PO
[2020-05-15] MEDS ORDERED: LIPITOR 20 MG T20 M1 PO (14:12)
[2020-05-15] MEDS ORDERED: CARDURA2 MG PO (14:15)
[2020-05-15] MEDS ORDERED: EDARBYCLOR 40-1 EAC1 PO (14:16)
[2020-05-15] MEDS ORDERED: PROBIOTIC1 EAC7 PO (14:16)
[2020-05-15] MEDS ORDERED: IBUPROFEN 600600 M1 PO (14:17)
[2020-05-15] MEDS ORDERED: ATENOLOL 25 MG25 M1 PO (14:18)
[2020-05-15 15:15] VITALS: BP 171/67
--- NOTE | 2020-05-15 15:29 | NUR ---
ADMISSION NOTE: PT PRESENT TO 2NORTH UNIT FOLLOWING A VISIT AT DR WELLS'S OFFICE. PT ALERT AND ORIENTED X4. PT ADMISSION ASSESSMENT PERFORMED AND CHARTED. PT DENIES PAIN AT THIS TIME. WILL AWAIT FOR FURTHER ORDERS.
[2020-05-15 16:13] LABS: HEMATOCRIT 39.2 % (42.0-52.0); MCH 31.8 pg (26.0-34.0); MCHC 33.1 g/dL (28.0-37.0); MCV 96.2 fL (80.0-100.0); RBC 4.08 mil/uL (4.50-6.00); RDW 14.3 % (10.5-14.5); WBC 8.6 thou/uL (4.0-11.0)
[2020-05-15 16:39] LABS: ALBUMIN 3.6 g/dL (3.4-5.0); CALCIUM 8.9 mg/dL (8.5-10.1); CREATININE 1.2 mg/dL (0.7-1.3); POTASSIUM 4.6 mmol/L (3.5-5.1); TOTAL BILIRUBIN 0.3 mg/dL (0.2-1.0); TOTAL PROTEIN 7.5 g/dL (6.4-8.2)
[2020-05-15 20:15] VITALS: BP 153/60
[2020-05-16 00:30] VITALS: BP 146/59
[2020-05-16 04:45] VITALS: BP 151/62
--- NOTE | 2020-05-16 07:40 | NUR ---
chart review. cardiac AIRBRUSH ARTIST visited with pt his am. plan to start with some labs and get echo, then other test if needed. damir was at dr lyons office for check up and had SOA and was sent to [facility]. intro to cm and dcp. 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 live home duplex, 2 floor has 8 steps. live with sig other, independent other than, he needs help with foot care rt wt and i know this is all because of wt. uses care for long standing or distances rt back problems. has cpap from [facility]damir. will cont following as needed. no anticipated needs.
[2020-05-16 07:58] VITALS: BP 144/59
--- NOTE | 2020-05-16 08:04 | NUR ---
SLEPT PART OF SHIFT. UP IN CHAIR TRHOUGHOUT NOC. DENIES COMPLAINTS OF PAIN OR SHORTNESS OF AIR. VOIDING PER URINAL. UP IN ROOM AD LUNA WITH STEADY GAIT. PROGRESSING SLOWLY. CONTINUE TO ASSES.
--- NOTE | 2020-05-16 09:10 | NUR ---
ASSUMED PT CARE AT 0700. PT SITTING UP IN CHAIR VISITING. ECHO IN ROOM AT 0830. 0845. ASSESSMENT PERFORMED CHARTED. MEDICATION ADMINISTRATION. PT STATES HE HAS A MILD HEADACHE HOWEVER STATES HE HASNT DRANK MUCH COFFEE HE NORMALLY DOES BY THIS TIME IN THE MORNING AND THINKS ITS DUE TO THE LACK OF CAFFEINE. PTS VSS. WILL CONTINUE TO MONITOR.
[2020-05-16 09:35] LABS: CREATININE 1.4 mg/dL (0.7-1.3); POTASSIUM 4.6 mmol/L (3.5-5.1)
--- NOTE | 2020-05-16 09:49 | 2DMMODE ---
[facility] [place] [address] 2 D/M-MODE ECHOCARDIOGRAM Name: MANDYJACINTA Room #: 209-P ADM IN M.R.#: [id number] Admission: 05/15/20 Attend Phys: Sky Naik MD, Discharge: Date of : 52 Report #: [id number] THIS REPORT FOR: cc: David Tellez Bradley Dean DO Lundgren, Craig H. MD [facility] ~ APPROVED REPORT Study performed: 05/16/2020 08:09:35 EXAM: Comprehensive 2D, Doppler, and color-flow Echocardiogram Patient Location: Bedside Room #: 209 Status: routine BSA: 2.86 HR: 62 bpm BP: 151/62 mmHg Rhythm: NSR Other Information Study Quality: Adequate Technically limited study due to Morbid obesity. Indications Short of breath, edema, diastolic heart failure. Hx: mild CAD, HTN, HLD. 2D Dimensions RVDd: 38.22 mm IVSd: 13.64 (7-11mm) LVOT Diam: 23.97 (18-24mm) LVDd: 54.47 mm PWd: 12.68 (7-11mm) Ascending Ao: 35.16 (22-36mm) LVDs: 30.79 (25-40mm) Aortic Root: 37.04 mm Volumes Left Atrial Volume (Systole) Single Plane 4CH: 63.11 mL Single Plane 2CH: 85.57 mL LA ESV Index: 28.00 mL/m2 Aortic Valve AoV Peak Steven.: 1.31 m/s AO Peak Gr.: 6.84 mmHg LVOT Max P.62 mmHg LVOT Max V: 1.19 m/s [facility] [address] [place] [address] 2 D/M-MODE ECHOCARDIOGRAM Name: JACINTA GALVAN CLARITA Room #: 209-P [facility].#: [id number] Admission: 05/15/20 Attend Phys: Sky Naik, Discharge: Date of : 52 Report #: [id number] MARIELA Vmax: 4.09 cm2 Mitral Valve E/A Ratio: 0.9 MV Decel. Time: 275.55 ms MV E Max Steven.: 0.88 m/s MV A Steven.: 0.93 m/s MV PHT: 79.91 ms IVRT: 59.98 ms Pulmonary Valve PV Peak Steven.: 0.91 m/s PV Peak Gr.: 3.33 mmHg Pulmonary Vein P Vein S: 0.60 m/s P Vein A: 0.26 m/s P Vein D: 0.55 m/s P Vein A Dur.: 129.2 msec P Vein S/D Ratio: 1.09 Tricuspid Valve TR Peak Steven.: 2.88 m/s RAP Estimate: 5.00 mmHg TR Peak Gr.: 33.19 mmHg PA Pressure: 38.00 mmHg Left Ventricle The left ventricle is normal size. There is normal LV segmental wall motion. Mild concentric left ventricular hypertrophy. The left ventricular systolic function is normal. LVEF is 55-60%. Mild diastolic dysfunction Right Ventricle The right ventricle is normal size. The right ventricular systolic function is normal. Atria The left atrium size is normal. The right atrium size is normal. Aortic Valve The aortic valve is normal in structure. No aortic regurgitation is present. There is no aortic valvular stenosis. Mitral Valve The mitral valve is normal in structure. There is no mitral valve regurgitation noted. No evidence of mitral valve stenosis. Tricuspid Valve [facility] [address] [place] [address] 2 D/M-MODE ECHOCARDIOGRAM Name: JACINTA GALVAN CLARITA Room #: 209-P [facility] IN .R.#: [id number] Admission: 05/15/20 Attend Phys: Sky Naik, Discharge: Date of : 52 Report #: [id number] The tricuspid valve is normal in structure. Trace tricuspid regurgitation. Estimated PAP 35-40mmHg. Pulmonic Valve The pulmonary valve is normal in structure. Mild pulmonic regurgitation. Great Vessels Aortic root is mildly dilated. At 4.1 cm. The ascending aorta is normal in size. IVC is normal in size and collapses >50% with inspiration. Pericardium There is no pericardial effusion. <Conclusion> The left ventricular systolic function is normal. There is normal LV segmental wall motion. LVEF is 55-60%. Mild diastolic dysfunction The aortic valve is normal in structure. No aortic regurgitation or stenosis The mitral valve is normal in structure. No mitral valve regurgitation Trace tricuspid regurgitation. Estimated pulmonary artery pressure of 35-40mmHg. There is no pericardial effusion. <ELECTRONICALLY SIGNED> By: Guy Ibarra MD, FACC 05/16/2049 8 8 Guy Ibarra MD, FACC /INF
--- NOTE | 2020-05-16 11:47 | NUR ---
pt sleeping with significant other at bedside. will continue to monitor.
[2020-05-16 12:05] VITALS: BP 100/76
[2020-05-16 15:49] VITALS: BP 141/41
--- NOTE | 2020-05-16 15:50 | NUR ---
PT RESTING WITH S/O AT BEDSIDE. VSS. ASSESSMENT PERFORMED AND CHARTED. WILL CONTINUE TO MONITOR PT.
--- NOTE | 2020-05-16 17:50 | NUR ---
DR WELLS HAS NOT ROUNDED ON PATIENT HAS PROMISED BY NEMO HOOVER THIS MORNING. CONTACTED ANSWERING SERVICE. PT IS UPSET THAT HE HAS NOT SPOKE TO PRISCILLA YET TODAY.
[2020-05-16 20:15] VITALS: BP 160/60
--- NOTE | 2020-05-17 04:26 | NUR ---
UP IN CHAIR WATCHING TV. SLEPT PART OF SHIFT. DENIES COMPLAINTS OF PAIN OR SHORTNESS OF AIR. UP AD LUNA IN ROOM WITH STEADY GAIT. WORKING ON GOALS AND PLAN OF CARE FOR NOC. CONTINUE TO ASSES.
[2020-05-17 04:45] VITALS: BP 146/59
[2020-05-17 05:11] LABS: CALCIUM 8.6 mg/dL (8.5-10.1); CREATININE 1.5 mg/dL (0.7-1.3)
[2020-05-17] MEDS ORDERED: DEMADEX20 MG PO (07:48)
[2020-05-17 08:00] VITALS: BP 139/63
--- NOTE | 2020-05-17 08:43 | NUR ---
assumed care for patienta at 0700. pt sitting up in chair eating breakfast. pt is preparing to be d/c. assessment performed and charted. vss. will continue to monitor.
[2020-05-17 09:29] VITALS: BP 146/59
== END 2020-05-17 10:47 | disposition home or self-care (01) | DRG 291 ==
LOC: 2N 13:48
PROVIDERS: Nurse Practitioner Adult Health; ADMIT Internal Medicine Cardiovascular Disease; ATTEND Internal Medicine Cardiovascular Disease
PROC: 5A09357 Assistance with Respiratory Ventilation, Less than 24 Consecutive Hours, Continuous Positive Airway Pressure (ICD-10-PCS; principal; 2020-05-15)
DX: I13.0 Hypertensive heart and chronic kidney disease with heart failure and stage 1 through stage 4 chronic kidney disease, or unspecified chronic kidney disease (principal); I50.33 Acute on chronic diastolic (congestive) heart failure; Z68.43 Body mass index [BMI] 50.0-59.9, adult; I25.10 Atherosclerotic heart disease of native coronary artery without angina pectoris; E78.5 Hyperlipidemia, unspecified; N18.9 Chronic kidney disease, unspecified; E66.01 Morbid (severe) obesity due to excess calories; E88.81 Metabolic syndrome and other insulin resistance; G40.909 Epilepsy, unspecified, not intractable, without status epilepticus; Z79.82 Long term (current) use of aspirin; Z79.899 Other long term (current) drug therapy
CPT/HCPCS: 10081

== ENCOUNTER → 2020-05-15 | Outpatient (CLI) | payer OTHER ==
[~2020-05-15] MED LIST changes: +ATENOLOL 25 MG25 M1 PO; +CARDURA2 MG PO; +DEMADEX20 MG PO; +EDARBYCLOR 40-1 EAC1 PO; +IBUPROFEN 600600 M1 PO; +LIPITOR 20 MG T20 M1 PO; +PROBIOTIC1 EAC7 PO
== END ==
LOC: SJCVC 12:42
PROVIDERS: ATTEND Internal Medicine Cardiovascular Disease
DX: I50.33 Acute on chronic diastolic (congestive) heart failure (principal); I25.10 Atherosclerotic heart disease of native coronary artery without angina pectoris; R06.02 Shortness of breath; E78.00 Pure hypercholesterolemia, unspecified; E78.1 Pure hyperglyceridemia; I13.0 Hypertensive heart and chronic kidney disease with heart failure and stage 1 through stage 4 chronic kidney disease, or unspecified chronic kidney disease; N18.30 Chronic kidney disease, stage 3 unspecified; E66.9 Obesity, unspecified; Z90.49 Acquired absence of other specified parts of digestive tract; Z79.82 Long term (current) use of aspirin; Z79.899 Other long term (current) drug therapy; Z87.891 Personal history of nicotine dependence; Z86.69 Personal history of other diseases of the nervous system and sense organs; Z82.49 Family history of ischemic heart disease and other diseases of the circulatory system

== ENCOUNTER → 2020-05-23 | Outpatient (CLI) | payer OTHER ==
[~2020-05-23] MED LIST changes: +ATENOLOL 25 MG25 M1 PO; +CARDURA2 MG PO; +DEMADEX20 MG PO; +EDARBYCLOR 40-1 EAC1 PO; +IBUPROFEN 600600 M1 PO; +LIPITOR 20 MG T20 M1 PO; +PROBIOTIC1 EAC7 PO
== END ==
LOC: SJCVC 13:38
PROVIDERS: ATTEND Internal Medicine Cardiovascular Disease
DX: I25.10 Atherosclerotic heart disease of native coronary artery without angina pectoris (principal); I10 Essential (primary) hypertension; E78.00 Pure hypercholesterolemia, unspecified; I50.32 Chronic diastolic (congestive) heart failure; Z86.69 Personal history of other diseases of the nervous system and sense organs; Z87.891 Personal history of nicotine dependence; Z72.89 Other problems related to lifestyle; Z79.82 Long term (current) use of aspirin; Z79.1 Long term (current) use of non-steroidal anti-inflammatories (NSAID); Z79.899 Other long term (current) drug therapy

== ENCOUNTER → 2020-06-21 | Outpatient (CLI) | payer OTHER | LOC: SJCVCIMAG 07:34 | PROVIDERS: ATTEND Internal Medicine Cardiovascular Disease | DX: M79.604 Pain in right leg (principal); M79.605 Pain in left leg; M79.89 Other specified soft tissue disorders; E78.00 Pure hypercholesterolemia, unspecified; I25.10 Atherosclerotic heart disease of native coronary artery without angina pectoris; I11.0 Hypertensive heart disease with heart failure; I50.32 Chronic diastolic (congestive) heart failure; Z72.89 Other problems related to lifestyle; Z79.82 Long term (current) use of aspirin; Z79.899 Other long term (current) drug therapy; Z87.891 Personal history of nicotine dependence ==

== ENCOUNTER → 2020-08-23 | Outpatient (CLI) | payer OTHER | LOC: SJCVC 15:31 | PROVIDERS: ATTEND Internal Medicine Cardiovascular Disease | DX: I25.10 Atherosclerotic heart disease of native coronary artery without angina pectoris (principal); E78.00 Pure hypercholesterolemia, unspecified; E78.1 Pure hyperglyceridemia; I13.0 Hypertensive heart and chronic kidney disease with heart failure and stage 1 through stage 4 chronic kidney disease, or unspecified chronic kidney disease; N18.30 Chronic kidney disease, stage 3 unspecified; I50.32 Chronic diastolic (congestive) heart failure; N40.0 Benign prostatic hyperplasia without lower urinary tract symptoms; Z90.49 Acquired absence of other specified parts of digestive tract; Z79.82 Long term (current) use of aspirin; Z79.899 Other long term (current) drug therapy; Z87.891 Personal history of nicotine dependence; Z82.49 Family history of ischemic heart disease and other diseases of the circulatory system ==

== ENCOUNTER → 2020-09-04 | Outpatient (CLI) | payer OTHER | LOC: SJCVCIMAG 06:51 | PROVIDERS: ATTEND Internal Medicine Cardiovascular Disease | DX: R00.1 Bradycardia, unspecified (principal); I25.10 Atherosclerotic heart disease of native coronary artery without angina pectoris; E78.5 Hyperlipidemia, unspecified; I11.0 Hypertensive heart disease with heart failure; I50.9 Heart failure, unspecified; E66.9 Obesity, unspecified; Z87.891 Personal history of nicotine dependence; Z79.82 Long term (current) use of aspirin; Z79.899 Other long term (current) drug therapy ==

== ENCOUNTER → 2020-09-10 | Outpatient (CLI) | payer OTHER ==
[~2020-09-10] VITALS: Ht 185.4 cm; Wt 163.7 kg
[2020-09-10 07:18] VITALS: BP 152/63
[2020-09-10 07:55] LABS: CALCIUM 8.7 mg/dL (8.5-10.1); CREATININE 1.1 mg/dL (0.7-1.3)
--- NOTE | 2020-09-13 13:03 | CATHLAB ---
[facility] [place] [address] INVASIVE PROCEDURE REPORT Name: JACINTA GALVAN Room #: REG ZELDA PeralesHeather#: [id number] Admission: 09/10/20 Attend Phys: Sky Naik MD, Discharge: Date of : 52 Report #: [id number] THIS REPORT FOR: cc: David Tellez Bradley Dean DO Mancuso, Gerald M. MD [facility] ~ APPROVED REPORT Study performed: 09/10/2020 07:31:38 Patient Details Patient Status: Out-Patient Room #: The patient is a 69 year-old male Event Personnel Sky Naik Range Aide, Nelli Blood RTR, CHELLY Scrub, Eladia Morales RTR Scrub, Cosme Briggs RTR Monitor, Neeraj Cortes RN crime prevention worker Performed Art Access - R femoral artery* Left Heart Cath w/or w/o Coronaries [id number] [facility] 54896 Initial Mod Sed Same Phys/QHP Gr5y [id number] Mod Sed Same Phys/QHP Ea 262982 Hemostasis w/ Mynx Abdominal Aortography 654131 Indication Positive stress test Risk Factors Coronary Artery Disease Procedure Narrative The Right Groin^ was infiltrated with 1% Lidocaine subcutaneous anesthesia. A PINNACLE 6FR Sheath #[id number] sheath was inserted into the RFA^. Coronary angiography was performed using coronary diagnostic catheters. The right coronary system was accessed and visualized with a JR4 catheter. The left coronary system was accessed and visualized with a JL4 catheter. The left ventricle was accessed and visualized with a PIGTAIL catheter. Left ventriculogram was performed in 30 degree projection. An aortogram of the abdominal aorta was performed. Closure device was deployed with a 6 Fr MYNXGRIP 6/7F #[id number]. The patient tolerated the procedure well and there were no complications associated with the procedure. There was no hematoma. [facility] [address] [place] [address] INVASIVE PROCEDURE REPORT Name: JACINTA GALVAN CLARITA [facility]: [id number] Admission: 09/10/20 Attend Phys: Sky Naik, Discharge: Date of : 52 Report #: [id number] Intraoperative Conscious Sedation Sedation start time: 851 Case end Time: 924 Fentanyl 100 mcg Versed 2 mg Fluoro Time: 2.40 minutes Dose: DAP 92506.30 cGycm2 1459 mGy Contrast Type and Amount: Omnipaque 70 ml Hemodynamics The aortic pressure is 142/73 mmHg with a mean of 101 mmHg. The left ventricular pressure is 144/19 mmHg with a mean of mmHg. The left ventricular end diastolic pressure is 35 mmHg. Conclusion #1 Normal left ventricular size and systolic function EF 60% #2 #2 abdominal aorta is tortuous and there is small infrarenal aortic aneurysm will evaluate noninvasively. #3 left main short with mild irregularity giving rise to LAD #4 LAD with an eccentric proximal muscle lesion of 50% with diffuse distal disease and proximal calcification not occlusive. #5 circumflex OM is widely patent it is predominantly the dominant vessel. Technically codominant #6 moderate caliber right coronary artery is codominant with a small diffusely diseased PDA no occlusive disease #7 there is a large septal protocol officer off of the LAD which is a high-grade lesion would not treat this with intervention. Recommendations and plan: Continue aggressive risk factor modification no indication for coronary intervention. <ELECTRONICALLY SIGNED> By: Sky Naik MD, FACC 09/13/20 1302 1302 1302 Sky Naik MD, FACC /INF
== END | disposition home or self-care (01) ==
LOC: CATH 06:20
PROVIDERS: ATTEND Internal Medicine Cardiovascular Disease
DX: R94.39 Abnormal result of other cardiovascular function study (principal); I25.10 Atherosclerotic heart disease of native coronary artery without angina pectoris; I71.4 Abdominal aortic aneurysm, without rupture; I13.0 Hypertensive heart and chronic kidney disease with heart failure and stage 1 through stage 4 chronic kidney disease, or unspecified chronic kidney disease; N18.4 Chronic kidney disease, stage 4 (severe); I50.9 Heart failure, unspecified; M19.90 Unspecified osteoarthritis, unspecified site; Z98.890 Other specified postprocedural states; Z79.899 Other long term (current) drug therapy; Z90.49 Acquired absence of other specified parts of digestive tract; Z87.891 Personal history of nicotine dependence

== ENCOUNTER → 2020-12-18 | Outpatient (CLI) | payer OTHER | LOC: SJCVC 09:31 | PROVIDERS: ATTEND Internal Medicine Cardiovascular Disease | DX: R94.31 Abnormal electrocardiogram [ECG] [EKG] (principal); I25.10 Atherosclerotic heart disease of native coronary artery without angina pectoris; I13.0 Hypertensive heart and chronic kidney disease with heart failure and stage 1 through stage 4 chronic kidney disease, or unspecified chronic kidney disease; N18.30 Chronic kidney disease, stage 3 unspecified; I50.32 Chronic diastolic (congestive) heart failure; E78.00 Pure hypercholesterolemia, unspecified; R06.00 Dyspnea, unspecified; E78.5 Hyperlipidemia, unspecified; N40.0 Benign prostatic hyperplasia without lower urinary tract symptoms; Z90.49 Acquired absence of other specified parts of digestive tract; Z98.890 Other specified postprocedural states; Z87.891 Personal history of nicotine dependence; Z79.82 Long term (current) use of aspirin; Z79.899 Other long term (current) drug therapy ==